=== PATIENT | female | born 1975 | race Two or more races ===

== ENCOUNTER 2023-10-03 14:14 | Inpatient (IN) | payer OTHER ==
[~2023-10-03] VITALS: Ht 149.9 cm; Wt 57.2 kg
[2023-10-03 15:04] LABS: BASOPHILS % (AUTO) 0.6 % (0.0-2.0); EOSINOPHILS # (AUTO) 0.3 K/uL (0.0-0.7); HEMATOCRIT 36 % (33-45); HEMOGLOBIN 11.7 g/dL (11.5-14.8); LYMPHOCYTES # (AUTO) 1.3 K/uL (0.8-4.8); LYMPHOCYTES % (AUTO) 18.1 % (20.0-44.0); MEAN CORPUSCULAR HEMOGLOBIN 29 PG (26.0-33.0); MEAN CORPUSCULAR HGB CONC 33 g/dl (31.0-36.0); MEAN CORPUSCULAR VOLUME 89 fL (82-100); MONOCYTES # (AUTO) 0.2 K/uL (0.1-1.30); MONOCYTES % (AUTO) 3.4 % (2.0-12.0); NEUTROPHILS # (AUTO) 5.1 K/uL (1.8-8.9); NEUTROPHILS % (AUTO) 73.9 % (43.0-81.0); PLATELET COUNT (AUTO) 159 K/uL (150-450); RED BLOOD CELL COUNT(AUTO) 4.03 MIL/uL (4.0-5.2); RED CELL DISTRIBUTION WIDTH 16.1 % (11.5-15.0); WHITE BLOOD COUNT (AUTO) 6.9 K/uL (4.3-11.0)
[2023-10-03 15:22] LABS: INR 1.07 (0.91-1.10); PARTIAL THROMBOPLASTIN TIME 26.2 SEC (24.3-34.3); PROTHROMBIN TIME 11.3 SECS (9.2-11.1)
[2023-10-03] MEDS ORDERED: MIRT-90 PO (15:22)
[2023-10-03] MEDS ORDERED: AMLO-213 PO (15:22)
[2023-10-03] MEDS ORDERED: BUME2TAB7 PO (15:22)
[2023-10-03] MEDS ORDERED: TRAZ-252 PO (15:22)
[2023-10-03] MEDS ORDERED: CARV12.52 PO (15:22)
[2023-10-03] MEDS ORDERED: FOLI0.4T6 PO (15:22)
[2023-10-03] MEDS ORDERED: INSU100I40 SQ (15:22)
[2023-10-03] MEDS ORDERED: LOSA50TA39 PO (15:22)
[2023-10-03] MEDS ORDERED: VALA500T40 PO (15:22)
[2023-10-03] MEDS ORDERED: PANT20TA17 PO (15:22)
[2023-10-03] MEDS ORDERED: SEVE800T28 PO (15:22)
[2023-10-03] MEDS ORDERED: HYDR-4077 PO (15:22)
[2023-10-03] MEDS ORDERED: INSU100I26 SQ (15:22)
[2023-10-03] MEDS ORDERED: ATOR40TA PO (15:22)
[2023-10-03 16:14] LABS: CALCIUM, SERUM 9.3 mg/dL (8.5-10.1); CARBON DIOXIDE 27 mmol/L (21-32); CHLORIDE 91 mmol/L (98-107); GLUCOSE 195 mg/dL (74-106); POTASSIUM 5.1 mmol/L (3.5-5.1); SODIUM SERUM 130 mmol/L (136-145); UREA NITROGEN, BLOOD 76 mg/dL (7-18)
[2023-10-03 16:27] LABS: NT-PRO BNP 14519 pg/mL (0-125)
[2023-10-03] MEDS ORDERED: MAG HYDROX/AL HYDROX/SIMETH 30 ML UDC PO PRN (20:00)
[2023-10-03] MEDS ORDERED: HYDROCODONE/APAP 5/325MG TABLET PO PRN (20:00)
[2023-10-03] MEDS ORDERED: ACETAMINOPHEN 325 MG TABLET PO PRN (20:00)
[2023-10-03] MEDS ORDERED: Z GUARD REMEDY 4 OZ OINT TP PRN (20:00)
[2023-10-03] MEDS ORDERED: MAGNESIUM HYDROXIDE 30 ML UDC PO PRN (20:00)
[2023-10-03 20:23] VITALS: BP 147/64; TEMP 97.5; O2SAT 96
[2023-10-03] MEDS: MIRTAZAPINE 15 MG TABLET PO SCH (21:21)
[2023-10-03] MEDS: TRAZODONE 50 MG TABLET PO SCH (21:21)
[2023-10-03] MEDS: ATORVASTATIN 40 MG TABLET PO SCH (21:22)
[2023-10-04] VITALS: BP 158/69; TEMP 97.5; O2SAT 95
[2023-10-04 04:00] VITALS: BP 162/66; TEMP 97.8; O2SAT 97
[2023-10-04 05:00] VITALS: BP 150/70
[2023-10-04 06:36] LABS: BASOPHILS # (AUTO) 0.1 K/uL (0.0-0.2); BASOPHILS % (AUTO) 1.2 % (0.0-2.0); EOSINOPHILS # (AUTO) 2.3 K/uL (0.0-0.7); EOSINOPHILS % (AUTO) 25.2 % (0.0-6.0); HEMATOCRIT 30 % (33-45); LYMPHOCYTES # (AUTO) 2.6 K/uL (0.8-4.8); LYMPHOCYTES % (AUTO) 27.9 % (20.0-44.0); MEAN CORPUSCULAR HEMOGLOBIN 30 PG (26.0-33.0); MEAN CORPUSCULAR HGB CONC 34 g/dl (31.0-36.0); MEAN CORPUSCULAR VOLUME 88 fL (82-100); MONOCYTES # (AUTO) 0.7 K/uL (0.1-1.30); MONOCYTES % (AUTO) 7.6 % (2.0-12.0); NEUTROPHILS # (AUTO) 3.5 K/uL (1.8-8.9); NEUTROPHILS % (AUTO) 38.1 % (43.0-81.0); PLATELET COUNT (AUTO) 144 K/uL (150-450); RED BLOOD CELL COUNT(AUTO) 3.37 MIL/uL (4.0-5.2); RED CELL DISTRIBUTION WIDTH 15.9 % (11.5-15.0); WHITE BLOOD COUNT (AUTO) 9.2 K/uL (4.3-11.0)
[2023-10-04 06:50] LABS: CALCIUM, SERUM 9.1 mg/dL (8.5-10.1); PHOSPHORUS 4.5 mg/dL (2.5-4.9); POTASSIUM 5.5 mmol/L (3.5-5.1)
[2023-10-04 07:27] LABS: CREATININE 11.4 mg/dL (0.6-1.3); MAGNESIUM 4.4 mg/dL (1.8-2.4)
[2023-10-04 07:30] VITALS: BP 162/64; TEMP 98.5; O2SAT 97
[2023-10-04] MEDS: SEVELAMER CARBONATE 800 MG TABLET PO SCH (08:23)
[2023-10-04] MEDS: BUMETANIDE (1 MG) 1 MG TABLET PO SCH (08:23)
[2023-10-04] MEDS: AMLODIPINE BESYLATE 10 MG TABLET PO SCH (08:24)
[2023-10-04] MEDS: FOLIC ACID 1 MG TABLET PO SCH (08:24)
[2023-10-04] MEDS: PANTOPRAZOLE 40 MG TABLET.DR PO SCH (08:24)
[2023-10-04] MEDS: LOSARTAN POTASSIUM 50 MG TABLET PO SCH (08:25)
[2023-10-04] MEDS: CARVEDILOL 12.5 MG TABLET PO SCH (08:25)
[2023-10-04] MEDS: hydrALAZINE HCL 50 MG TABLET PO SCH (10:30)
[2023-10-04 10:40] LABS: THYROID STIMULATING HORMONE 1.44 uIU/mL (0.358-3.74)
[2023-10-04 11:00] VITALS: BP 146/66; TEMP 98.5; O2SAT 94
[2023-10-04] MEDS ORDERED: IOHEXOL-350 100 ML VIAL IV ONE (11:16)
[2023-10-04] MEDS ORDERED: CT SWABBABLE VALVE TRANS SET 1 EA INFUS.SET MC ONE (11:16)
[2023-10-04] MEDS ORDERED: NITROGLYCERIN 0.4 MG/TAB BOTTLE ONE (11:16)
[2023-10-04] MEDS ORDERED: METOPROLOL TARTRATE INJ 5 MG/5 ML AMPUL ONE (11:16)
[2023-10-04] MEDS ORDERED: IV NS 0.9% 250 ML IV ONE (11:17)
[2023-10-04] MEDS ORDERED: METOPROLOL TARTRATE INJ 5 MG/5 ML AMPUL IVP PRN (11:30)
[2023-10-04] MEDS: NITROGLYCERIN 0.4 MG/TAB BOTTLE SL ONE (11:44)
[2023-10-04 11:57] LABS: ANISOCYTOSIS 1+; BASOPHILS % (MANUAL) 0 % (0.0-2.0); EOSINOPHILS % (MANUAL) 27 % (0-4); LYMPHOCYTES % (MANUAL) 28 % (16-48); MONOCYTES % (MANUAL) 3 % (0-11.0); NEUTROPHILS % (MANUAL) 42 (42-76); PLATELET ESTIMATE ADEQUATE; STOMATOCYTES 1+
[2023-10-04] MEDS: ONDANSETRON HCL/PF 4 MG/2 ML VIAL IVP PRN (15:00)
[2023-10-04 20:00] VITALS: BP 158/70; TEMP 97.9; O2SAT 98
[2023-10-05] VITALS: BP 144/62; TEMP 98.2; O2SAT 96
[2023-10-05 04:00] VITALS: BP 148/73; TEMP 97.9; O2SAT 97
[2023-10-05 07:27] LABS: BASOPHILS # (AUTO) 0.1 K/uL (0.0-0.2); BASOPHILS % (AUTO) 1.1 % (0.0-2.0); EOSINOPHILS # (AUTO) 2.7 K/uL (0.0-0.7); HEMATOCRIT 30 % (33-45); HEMOGLOBIN 9.9 g/dL (11.5-14.8); MEAN CORPUSCULAR HEMOGLOBIN 29 PG (26.0-33.0); MEAN CORPUSCULAR HGB CONC 33 g/dl (31.0-36.0); MEAN CORPUSCULAR VOLUME 89 fL (82-100); MONOCYTES # (AUTO) 0.6 K/uL (0.1-1.30); MONOCYTES % (AUTO) 6.7 % (2.0-12.0); NEUTROPHILS # (AUTO) 3.8 K/uL (1.8-8.9); NEUTROPHILS % (AUTO) 41.2 % (43.0-81.0); PLATELET COUNT (AUTO) 110 K/uL (150-450); RED BLOOD CELL COUNT(AUTO) 3.37 MIL/uL (4.0-5.2); RED CELL DISTRIBUTION WIDTH 16.4 % (11.5-15.0); WHITE BLOOD COUNT (AUTO) 9.2 K/uL (4.3-11.0)
[2023-10-05 07:30] VITALS: BP 141/64; TEMP 98.4; O2SAT 95
[2023-10-05] MEDS: VALACYCLOVIR HCL 500 MG TABLET PO SCH (08:32)
[2023-10-05 10:11] LABS: HEPATITIS B CORE AB, TOTAL Negative (Negative); HEPATITIS B SURFACE AB Reactive (.)
[2023-10-05 10:50] LABS: CALCIUM, SERUM 8.4 mg/dL (8.5-10.1); MAGNESIUM 3.8 mg/dL (1.8-2.4); PHOSPHORUS 4.5 mg/dL (2.5-4.9); POTASSIUM 5.7 mmol/L (3.5-5.1)
[2023-10-05 10:57] LABS: CREATININE 9.4 mg/dL (0.6-1.3)
[2023-10-05 15:22] LABS: EOSINOPHILS % (MANUAL) 26 % (0-4); LYMPHOCYTES % (MANUAL) 22 % (16-48); MONOCYTES % (MANUAL) 4 % (0-11.0); NEUTROPHILS % (MANUAL) 48 (42-76)
[2023-10-05 15:23] LABS: ANISOCYTOSIS 2+; PLATELET ESTIMATE DECREASED
[2023-10-05 15:41] LABS: PREGNANCY TEST URINE QUAL NEGATIVE (NEGATIVE)
[2023-10-05 16:08] LABS: CALCIUM, SERUM 8.7 mg/dL (8.5-10.1); CREATININE 5.1 mg/dL (0.6-1.3); POTASSIUM 3.8 mmol/L (3.5-5.1)
[2023-10-05] MEDS ORDERED: DEXTROSE 50%-WATER 50 ML DISP.SYRIN IV PRN (16:30)
[2023-10-05] MEDS: INSULIN REGULAR, HUMAN 100 UNIT/ML 3 ML VIAL SQ PRN (17:11)
[2023-10-05] MEDS: BLOOD SUGAR DIAGNOSTIC 1 EACH STRIP IN SCH (17:12)
[2023-10-05 20:00] VITALS: BP 150/59; TEMP 98.1; O2SAT 94
[2023-10-05 20:27] VITALS: BP 150/59; TEMP 98.1; O2SAT 94
[2023-10-06 06:45] LABS: BASOPHILS # (AUTO) 0.1 K/uL (0.0-0.2); BASOPHILS % (AUTO) 1.2 % (0.0-2.0); EOSINOPHILS # (AUTO) 2.6 K/uL (0.0-0.7); HEMATOCRIT 29 % (33-45); HEMOGLOBIN 9.6 g/dL (11.5-14.8); LYMPHOCYTES # (AUTO) 2.3 K/uL (0.8-4.8); LYMPHOCYTES % (AUTO) 26.4 % (20.0-44.0); MEAN CORPUSCULAR HEMOGLOBIN 29 PG (26.0-33.0); MEAN CORPUSCULAR HGB CONC 33 g/dl (31.0-36.0); MEAN CORPUSCULAR VOLUME 89 fL (82-100); MONOCYTES # (AUTO) 0.7 K/uL (0.1-1.30); MONOCYTES % (AUTO) 8.4 % (2.0-12.0); PLATELET COUNT (AUTO) 82 K/uL (150-450); RED BLOOD CELL COUNT(AUTO) 3.26 MIL/uL (4.0-5.2); RED CELL DISTRIBUTION WIDTH 16.1 % (11.5-15.0); WHITE BLOOD COUNT (AUTO) 8.8 K/uL (4.3-11.0)
[2023-10-06 07:12] LABS: CREATININE 6.9 mg/dL (0.6-1.3); POTASSIUM 4.8 mmol/L (3.5-5.1)
[2023-10-06 11:09] LABS: EOSINOPHILS % (MANUAL) 20 % (0-4); LYMPHOCYTES % (MANUAL) 27 % (16-48); MONOCYTES % (MANUAL) 4 % (0-11.0); NEUTROPHILS % (MANUAL) 49 (42-76); PLATELET ESTIMATE DECREASED
[2023-10-06 11:10] LABS: ANISOCYTOSIS 1+
[2023-10-06 12:20] VITALS: BP 136/59
== END 2023-10-06 13:20 | DRG 425 ==
LOC: ER 14:26 → TELE 18:52 → MED 10-05 10:22
PROVIDERS: ATTEND Nurse Practitioner Acute Care
PROC: 5A1D70Z Performance of Urinary Filtration, Intermittent, Less than 6 Hours Per Day (ICD-10-PCS; principal; 2023-10-05)
DX: E87.79 Other fluid overload (principal); I31.39 Other pericardial effusion (noninflammatory); I12.0 Hypertensive chronic kidney disease with stage 5 chronic kidney disease or end stage renal disease; D63.1 Anemia in chronic kidney disease; N18.6 End stage renal disease; E83.41 Hypermagnesemia; E11.22 Type 2 diabetes mellitus with diabetic chronic kidney disease; R07.9 Chest pain, unspecified; E87.1 Hypo-osmolality and hyponatremia; Z99.2 Dependence on renal dialysis; E87.5 Hyperkalemia; E78.5 Hyperlipidemia, unspecified; F32.A Depression, unspecified; H40.9 Unspecified glaucoma; H54.8 Legal blindness, as defined in USA; K21.9 Gastro-esophageal reflux disease without esophagitis; M89.8X9 Other specified disorders of bone, unspecified site; Z95.0 Presence of cardiac pacemaker; Z79.4 Long term (current) use of insulin
CPT/HCPCS: 36415; 71045-TC; 75574; 76770-TC; 80048-TC; 80061-TC; 82728-TC; 82962-TC; 83540-TC; 83735-TC; 83880; 84100-TC; 84439-TC; 84443-TC; 84484-TC; 84703-TC; 85025-TC; 85730-TC; 86704; 86706; 87081-TC; 87340; 90935-TC; 93307-TC; G0378; J1815; J2405; J3490; J7030; J7050; Q9967